=== PATIENT | female | born 1975 | race Two or more races ===

== ENCOUNTER 2020-06-13 11:29 | Emergency (ER) | payer OTHER ==
[~2020-06-13] VITALS: Ht 167.6 cm; Wt 49.9 kg
[2020-06-13] MEDS ORDERED: FLUC150T PO (11:49)
[2020-06-13] MEDS ORDERED: AMOX-430 PO (11:49)
[2020-06-13] MEDS ORDERED: DESMOPRESSIN 4 MCG/ML AMPUL ONE (11:56)
[2020-06-13] MEDS ORDERED: TDAP [DIPH/PERTUSSIS/TET] 0.5 ML VIAL IM ONE ×2 (11:57→12:00)
--- NOTE | 2020-06-13 12:04 | NUR ---
PT REC'D TO ER C/O DOG BITE TO LIP UPPER TENTUS SHOT GIVEN TO LEFT DELTOID IM TOLERATED WELL PT. VERBALIZED UNDERSTANDING OF AFTERCARE INSTRUCTIONS.
[2020-06-13 12:06] VITALS: BP 126/73
== END 2020-06-13 12:08 | disposition home or self-care (01) ==
LOC: ER 11:39
DX: S00.511A Abrasion of lip, initial encounter (principal); Z79.899 Other long term (current) drug therapy; W54.0XXA Bitten by dog, initial encounter; Y93.89 Activity, other specified; Y92.89 Other specified places as the place of occurrence of the external cause; Y99.8 Other external cause status
CPT/HCPCS: 90715; J2597

== ENCOUNTER 2020-08-10 12:06 | Emergency (ER) | payer OTHER ==
[~2020-08-10] VITALS: Ht 167.6 cm; Wt 65.8 kg
[~2020-08-10 12:06] MED LIST: AMOX-430 PO; FLUC150T PO
[2020-08-10 12:19] VITALS: BP 118/76
[2020-08-10] MEDS ORDERED: AMOX-430 PO (12:39)
[2020-08-10] MEDS ORDERED: FLUC150T PO (14:45)
== END 2020-08-10 14:52 | disposition home or self-care (01) ==
LOC: ER 12:06
DX: L08.9 Local infection of the skin and subcutaneous tissue, unspecified (principal)

== ENCOUNTER 2020-08-15 12:37 | Emergency (ER) | payer OTHER ==
[~2020-08-15] VITALS: Ht 167.6 cm; Wt 55.8 kg
[2020-08-15 13:24] VITALS: BP 123/83
[2020-08-15] MEDS ORDERED: ACETAMINOPHEN ES 500 MG TABLET ONE (13:42)
--- NOTE | 2020-08-15 13:58 | NUR ---
covid swab done and sent to lab
[2020-08-15] MEDS ORDERED: ACETAMINOPHEN ES 500 MG TABLET PO ONE (14:00)
--- NOTE | 2020-08-15 14:08 | NUR ---
Pt ambulatory with a steady gait
--- NOTE | 2020-08-15 14:08 | NUR ---
Patient discharged to home in stable condition. Written and verbal after care instructions given. Patient verbalizes understanding of instruction.
--- NOTE | 2020-08-18 11:49 | NUR ---
Received a call from lab with report that the patient is positive for covid-19 pcr. The patient is provided with education and she verbalized understanding.
== END 2020-08-15 14:09 | disposition home or self-care (01) ==
LOC: ER 12:37
DX: U07.1 COVID-19 (principal)
CPT/HCPCS: 99283; C9803; U0003